=== PATIENT | female | born 1960 | race Two or more races ===

== ENCOUNTER 2023-05-26 10:19 | Emergency (ER) | payer OTHER ==
[~2023-05-26] VITALS: Ht 157.5 cm; Wt 63.5 kg
[2023-05-26] MEDS ORDERED: SYNTHROID88 MCG (10:53)
[2023-05-26] MEDS ORDERED: PREDNISONE20 M1 (10:53)
[2023-05-26 12:27] LABS: HEMATOCRIT 40.1 % (36.0-45.00); HEMOGLOBIN 13.5 g/dL (12.0-15.00); MEAN CELL VOLUME 91.4 fL (80.00-100.00); MEAN CORPUSCULAR HEMOGLOBIN 30.7 pg (27.00-32.0); MEAN CORPUSCULAR HGB CONC 33.6 g/dl (32.0-36.0); PLATELET COUNT 334 K/uL (150-450); RED BLOOD COUNT 4.39 M/uL (4.00-6.00); RED CELL DISTRIBUTION WIDTH 14.4 % (11.5-14.5)
[2023-05-26 12:50] LABS: ALBUMIN 3.6 gm/dL (3.4-5.0); BILIRUBIN TOTAL 0.82 mg/dL (0.3-1.2); CALCIUM 9.3 mg/dL (8.5-10.1); CREATININE SERUM 0.87 mg/dL (0.55-1.02); GFR 66.41; GLOBULINA 4.6 G/DL (2.4-3.5); POTASSIUM 3.46 mEq/L (3.5-5.1); TOTAL PROTEIN 8.2 gm/dL (6.4-8.2)
[2023-05-26 13:22] LABS: URINE APPEARANCE Turbid; URINE BILIRRUBIN Negative (NEGATIVE); URINE BLOOD Negative; URINE COLOR Yellow; URINE GLUCOSE Negative (NEGATIVE); URINE LEUKOCYTE Negative; URINE NITRATE Negative; URINE PROTEIN Negative (NEGATIVE); URINE UROBILINOGEN 0.2 E.U./dl
[2023-05-26 13:26] LABS: URINE BACTERIA 8.8 uL (0.0-1933)
[2023-05-26 13:34] LABS: URINE EPITHELIAL CELLS 1.2 uL (0.0-38.8); URINE RBC 0.5 uL (0.0-20.8)
[2023-05-26] MEDS ORDERED: ANTIVERT25 M2 PO (21:15)
[2023-05-26] MEDS ORDERED: DULCOLAX5 MG PO (21:15)
[2023-05-26] MEDS ORDERED: ZOFRAN8 MG PO (21:15)
[2023-05-26] MEDS ORDERED: PEPCID AC20 MG PO (21:15)
== END 2023-05-26 21:22 | disposition home or self-care (01) ==
LOC: ER 10:20
PROVIDERS: Emergency Medicine
DX: R42 Dizziness and giddiness (principal); M32.8 Other forms of systemic lupus erythematosus; Z85.850 Personal history of malignant neoplasm of thyroid; M19.90 Unspecified osteoarthritis, unspecified site; K29.70 Gastritis, unspecified, without bleeding; E27.0 Other adrenocortical overactivity
CPT/HCPCS: 36415; 96365; 96366; 99284; J2920; J3490; J7030; J7070